=== PATIENT | male | born 1950 | race Caucasian/White ===

== ENCOUNTER 2019-09-24 08:49 | Outpatient (CLI) | payer OTHER, SELFPAY ==
[2019-09-24 11:16] LABS: Abs Immature Grans 0.04 k/cumm (0.0-0.09); Absolute Basophil Count 0.04 k/cumm (0.0-0.2); Absolute Eosinophil Count 0.78 k/cumm (0.0-0.7); Absolute Lymphocyte Count 1.34 k/cumm (1.2-3.4); Absolute Monocyte Count 0.61 k/cumm (0.11-0.7); Absolute Neutrophil Count 4.16 k/cumm (1.2-6.7); Basophils % 0.6; Eosinophils % 11.2; HCT 49.6 % (40.0-50.0); HGB 15.9 g/dL (13.5-17.5); Immature Grans % 0.6; Lymphocytes % 19.2; Mean Corp. HGB Concentration 32.1 g/dL (32.0-36.0); Mean Corpuscular Hemoglobin 29.4 pg (27.0-33.0); Mean Corpuscular Volume 91.7 fL (80-95); Monocytes % 8.8; Neutrophils % 59.6; Platelet Count 262 x1000/uL (130-400); RBC 5.41 m/cumm (4.50-6.00); RBC Distribution Width 13.8 % (11.8-14.1); White Blood Cell Count 6.97 k/cumm (4.4-10.8)
[2019-09-24 11:25] LABS: Hemoglobin A1C 6.2 % (4.5-6.2)
[2019-09-24 11:47] LABS: ALT 41 U/L (16-63); AST 17 U/L (15-37); Alkaline Phosphatase 68 U/L (46-116); BUN 15 mg/dL (7-18); Bilirubin, Total 0.6 mg/dL (0.2-1.0); CREATININE 0.97 mg/dL (0.70-1.30); Calculated LDL 115 mg/dL; Chloride 108 mmol/L (98-107); Cholesterol 170 mg/dL (<200); Glucose 120 mg/dL (74-106); HDL Cholesterol 36 mg/dL (40-60); Potassium 4.3 mmol/L (3.5-5.1); Sodium 145 mmol/L (136-145); TSH 2.66 uIU/mL (0.36-3.74); Total Protein 6.9 g/dL (6.4-8.2); Triglyceride 96 mg/dL (<150)
[2019-09-29 10:49] LABS: PSA, Screening 1.4 ng/mL (0.0-6.5)
== END 2019-09-24 09:09 ==
PROVIDERS: PCP Family Medicine; Visit Provider Family Medicine
DX: F41.9 Anxiety disorder, unspecified (principal); R73.9 Hyperglycemia, unspecified; N13.8 Other obstructive and reflux uropathy; N40.1 Benign prostatic hyperplasia with lower urinary tract symptoms; R05 Cough; R50.9 Fever, unspecified; Z12.5 Encounter for screening for malignant neoplasm of prostate; I10 Essential (primary) hypertension
CPT/HCPCS: 36415; 80053; 80061; 84153; 83036; 84443; 85025

== ENCOUNTER 2019-10-08 13:19 | Outpatient (CLI) | payer OTHER, SELFPAY ==
--- NOTE | 2019-10-08 13:36 | DI.RAD_ITS ---
EXAM: XR CHEST 2V PA LATERAL INDICATION: Intermittent fever, myalgias, malaise,cough x 10w, R05, R50.9. COMPARISON: No exams were available for comparison TECHNIQUE: 2D digital imaging was performed. FINDINGS: Heart size and pulmonary vasculature within normal limits. The lungs are clear. No effusions or pne umothoraces are identified. There is a rounded soft tissue density seen in the inferior mediastinum near the gastroesophageal junction. This may represent a hiatal hernia. Barium swallow or upper end oscopy may be considered for further evaluation. CT scan may also be performed to exclude other etio logies. Bones appear intact. IMPRESSION: 1. No acute pulmonary process. 2. Soft tissue density in the lower mediastinum which may represent a hiatal hernia. Follow-up as cl inically appropriate.
== END 2019-10-08 13:39 ==
PROVIDERS: PCP Family Medicine; Visit Provider Family Medicine
DX: R05 Cough (principal); R50.9 Fever, unspecified; J98.59 Other diseases of mediastinum, not elsewhere classified
CPT/HCPCS: 71046

== ENCOUNTER → 2020-09-01 10:26 | Outpatient (BNVA) | payer OTHER, SELFPAY | PROVIDERS: PCP Family Medicine; Referring Provider Family Medicine; Visit Provider Surgery | DX: C44.619 Basal cell carcinoma of skin of left upper limb, including shoulder (principal); R22.2 Localized swelling, mass and lump, trunk | CPT/HCPCS: 11602; 99202 ==

== ENCOUNTER 2020-09-01 12:58 | Outpatient (REF) | payer OTHER, SELFPAY ==
--- NOTE | 2020-09-01 11:00 | SKI_PTH ---
PATIENT: Jamie Conteh LOC: [facility] U#:[id number] AGE/SX: 69/M ROOM: RE09/01/[address]: Kait Yee : 1950 BED: DIS: 09/01/2020 SPEC #: [id number] RECD: 09/01/20 13:02 STATUS: CASI REJimmy #: [id number] KENY: 09/01/20 11:[address]: Kait Yee DEPT: Surgical Specimen RECD BY: Katelyn Moctezuma ENTERED: 09/01/20 13:03 SP TYPE: ED CARTER DR: Michael Torres MD Tissues: 1 - SKIN BIOPSY(SHAVE/PUNCH) Procedures: SKIN LEVEL 4 Comments: [id number] [place] [place]
== END 2020-09-01 13:18 ==
LOC: LBN 12:58
PROVIDERS: PCP Family Medicine; Visit Provider Surgery
DX: C44.619 Basal cell carcinoma of skin of left upper limb, including shoulder (principal)
CPT/HCPCS: 88305

== ENCOUNTER → 2020-09-10 10:30 | Outpatient (BNVA) | payer OTHER, SELFPAY | PROVIDERS: PCP Family Medicine; Referring Provider Family Medicine; Visit Provider Surgery | DX: C44.91 Basal cell carcinoma of skin, unspecified (principal) | CPT/HCPCS: 99212 ==

== ENCOUNTER → 2020-09-17 11:27 | Outpatient (BNVA) | payer OTHER, SELFPAY | PROVIDERS: PCP Family Medicine; Referring Provider Family Medicine; Visit Provider Surgery | DX: Z48.817 Encounter for surgical aftercare following surgery on the skin and subcutaneous tissue (principal); C44.91 Basal cell carcinoma of skin, unspecified | CPT/HCPCS: 99211 ==

== ENCOUNTER 2023-01-11 02:56 | Outpatient (CLI) | payer MEDICARE, SELFPAY ==
[2023-01-11] MEDS: Inhaler, Assist Device 1 EACH MC (14:09)
[2023-01-11] MEDS: Albuterol HFA 18 GM 200 PUFF INH IH (14:09)
--- NOTE | 2023-01-17 13:17 | W.PFT ---
Date of service: 01/11/23 Time of Service: 13:03 Pulmonary Function Test Result Requesting Provider Ifrah Scott Indications: Dyspnea Interpretation Spirometry: There is no airflow limitation. No bronchodilator response. Lung Volumes: Normal volumes. Diffusion Capacity: Normal diffusion Airway Pressure: Normal airways resistance Impression Normal pulmonary function testing Clinical Correlation therefore is recommended.
== END 2023-01-11 02:57 | disposition home or self-care (01) ==
LOC: RT 02:56
PROVIDERS: PCP Family Medicine; Visit Provider Family Medicine
DX: R06.09 Other forms of dyspnea (principal); Z91.89 Other specified personal risk factors, not elsewhere classified; Z86.16 Personal history of COVID-19
CPT/HCPCS: 94060; 94726; 94729

== ENCOUNTER 2023-01-17 11:48 | Outpatient (CLI) | payer MEDICARE, SELFPAY ==
[2023-01-17 15:53] LABS: ALT 39 U/L (16-63); AST 18 U/L (15-37); Albumin 4.1 g/dL (3.4-5.0); Alkaline Phosphatase 67 U/L (46-116); Anion Gap 8.8 mmol/L (3-11); BUN 18 mg/dL (7-18); Bilirubin, Total 0.5 mg/dL (0.2-1.0); CO2 27.2 mmol/L (21.0-32.0); CREATININE 1.2 mg/dL (0.70-1.30); Calcium 9.6 mg/dL (8.5-10.1); Calculated LDL 98 mg/dL (<100); Chloride 106 mmol/L (98-107); Cholesterol 181 mg/dL (<200); Estimated GFR 63.85 (mL/min/1.73m2); Glucose 164 mg/dL (74-106); HDL Cholesterol 38 mg/dL (40-60); Potassium 3.9 mmol/L (3.5-5.1); Sodium 142 mmol/L (136-145); Total Protein 7.6 g/dL (6.4-8.2); Triglyceride 229 mg/dL (<150)
[2023-01-17 16:04] LABS: Uric Acid 5.3 mg/dL (3.5-7.2)
== END 2023-01-17 11:49 | disposition home or self-care (01) ==
LOC: LBO 11:48
PROVIDERS: PCP Family Medicine; Visit Provider Family Medicine
DX: R06.09 Other forms of dyspnea (principal); E78.5 Hyperlipidemia, unspecified; Z86.16 Personal history of COVID-19; R10.9 Unspecified abdominal pain; N40.1 Benign prostatic hyperplasia with lower urinary tract symptoms; N13.8 Other obstructive and reflux uropathy; N20.0 Calculus of kidney; Z12.5 Encounter for screening for malignant neoplasm of prostate; N52.9 Male erectile dysfunction, unspecified
CPT/HCPCS: 36415; 80053; 80061; 84153; 84550

== ENCOUNTER 2023-02-28 01:38 | Outpatient (CLI) | payer MEDICARE, SELFPAY ==
--- NOTE | 2023-02-28 14:05 | DI.US_ITS ---
APPROVED REPORT EXAM: Comprehensive 2D, Doppler, and color-flow Echocardiogram Patient Location: Out-Patient Parking Manager: Yaakov Portillo RDMS, RVT Indications: Dyspnea on exertion, H/O Covied, Risk for CAD Other Information Study Quality: Adequate. Technically limited study due to body habitus. Conclusion Mild concentric left ventricular hypertrophy. EF is 60%. Wall motion is normal Grossly normal right ventricular size and systolic function Both atria are normal in size Aortic valve is trileaflet with mild to moderate regurgitation Mild mitral and tricuspid regurgitation Right ventricular systolic pressure could not be estimated Dilated ascending aorta measuring 4.43 cm Wall motion Left Ventricle The left ventricle is normal size. The left ventricular systolic function is normal. The left ventric ular ejection fraction is within the normal range. Mild concentric left ventricular hypertrophy. Ther e is normal LV segmental wall motion. There is no ventricular septal defect visualized. LVEF is 6%. Right Ventricle Right ventricle is grossly normal in size. Right ventricular systolic function is grossly normal. Atria The left atrium size is normal. The right atrium size is normal. The interatrial septum is intact wit h no evidence for an atrial septal defect. Aortic Valve Aortic valve is trileaflet. The aortic valve is normal in structure. There is no aortic valvular sten osis. Mild to moderate aortic regurgitation. Mitral Valve The mitral valve is normal in structure. No evidence of mitral valve stenosis. Mild mitral regurgit ation. Tricuspid Valve The tricuspid valve is normal in structure. There is no tricuspid valve stenosis. Mild tricuspid regu rgitation. Pulmonic Valve The pulmonary valve is normal in structure. There is no pulmonic valvular stenosis. Trace pulmonic re gurgitation. Great Vessels Aortic root is mildly dilated. The ascending aorta is moderately dilated. Aortic arch is normal in ca liber. IVC is normal in size and collapses >50% with inspiration. Pericardium There is no pericardial effusion. 2D Dimensions IVSD d PLAX 1.23 cm M: 0.6-1.2 LV Vol A2C d MOD 193.3 mL LVPW d PLAX 1.26 cm M: 0.6 - 1.2 LV Vol A4C d MOD 165.9 mL LVID d PLAX 5.23 cm M: 4.2 - 5.8 LA vol/ BSA A2C s A-L 26.9 mL/m2 LVDs 3.85 cm M: 2.5 - 4.0 LA vol/ BSA A4C s A-L 20.5 mL/m2 Ao Root d 3.93 cm M: 3.1 - 3.7 LA Vol/ BSA Biplane s A-L 24.7 mL/m2 Ao Asc Diam d 4.43 cm M: 2.6 - 3.4 LA Area A4C s MOD 17.42 cm2 LV EF Teichholz 49.9 % LA Area A2C s MOD 18.98 cm2 LVEF (Han's) 54.14 % M: 52 - 72 LV EF A4C MOD 57.4 % LV Volume 130.62 mL M: 62 - 150 LV EF A2C MOD 55.3 % LV Volume Index 56.06 mL/m2 M: 34 - 74 LV EF Biplane MOD 54.1 % LV Vol Biplane MOD 182.7 mL SV 98.92 mL FS 25.45 % SV Index 42.52 mL/m2 LV Diastology MV E' medial 0.082 (>0.07 m/s) E/A Ratio 0.8 LV E/e MED 7.40 (<14) MV E Vmax 0.61 (0.4-1.3 m/s) MV E' lateral 0.081 (>0.1 m/s) MV A Vmax 0.80 (0.4-1.3 m/s) LV E/e LAT 7.50 (<14) MV E/A Ratio 0.75 MV E/E' medial 7.40 MV E/E' lateral 7.52 Aortic Valve LVOT Area 4.01 cm2 AoV Area Vmax 3.29 cm2 LVOT Vmax 1.36 m/s AoV Area/ BSA (Vmax) 1.42 cm2/m2 LVOT Mean Brendon. 0.87 m/s ADAN Mean Brendon. 3.09 cm2 LVOT Peak Grad 7.4 mmHg ADAN Mean Brendon. Index 1.33 cm2/m2 LVOT Mean Grad 3.6 mmHg LVOT VTI 0.229 m LVOT Diam s 2.25 cm AoV Vmax 1.66 m/s Velocity Ratio 0.82 AoV Mean Brendon. 1.13 m/s AoV Peak Grad 11.1 mmHg LVOT SV 91.97 mL AoV Mean Grad 5.8 mmHg AoV VTI 0.277 m AoV Area VTI 3.32 cm2 AoV Area/ BSA (VTI) 1.43 cm/m2 Mitral Valve MV DT 303 (160-240 msec) MV PHT 88 msec MV Area PHT 2.51 cm2 MV VTI 0.361 m MV Area VTI 2.55 (4.0-6.0 cm2) Pulmonary Valve PV Vmax 1.01 (0.5-1.5 m/s) RVOT Peak Gr. 3.01 mmHg PV Peak Grad 4.1 mmHg RVOT Mean Gr. 1.35 mmHg PV Mean Grad 2.8 mmHg RVOT VTI 0.148 m PV VTI 0.175 m RVOT Vmax 0.87 m/s
== END 2023-02-28 01:58 ==
LOC: DI 01:38
PROVIDERS: PCP Family Medicine; Visit Provider Family Medicine
DX: R06.09 Other forms of dyspnea (principal); Z86.16 Personal history of COVID-19; Z91.89 Other specified personal risk factors, not elsewhere classified
CPT/HCPCS: 93306

== ENCOUNTER 2023-10-29 17:27 | Outpatient (REF) | payer MEDICARE, SELFPAY ==
[2023-10-29 17:53] LABS: Bilirubin Negative (Negative); Blood Large (Negative); Clarity Cloudy (Clear); Glucose Negative (Negative); Ketones Negative (Negative); Leukocyte Esterase Negative (Negative); Nitrite Negative (Negative); Specific Gravity >= 1.030 (1.005-1.025); Urobilinogen 0.2 mg/dL (Up to 0.2); pH 5.5 (5-8)
[2023-10-29 18:01] LABS: Bacteria Few HPF (Negative); C & S Indicated? C&S Done As Ordered; Casts Negative LPF (Negative); Crystals Mod Calcium Oxalate HPF (Negative); Epithelial Cells Few HPF (Negative); Mucus Trace (Negative); RBC >50 HPF (0-2)
== END 2023-10-29 17:28 | disposition home or self-care (01) ==
LOC: LBN 17:27
PROVIDERS: PCP Family Medicine; Visit Provider Nurse Practitioner Family
DX: N30.01 Acute cystitis with hematuria (principal)
CPT/HCPCS: 81003; 81015; 87086

== ENCOUNTER → 2023-11-05 02:29 | Outpatient (CLI) | payer MEDICARE, SELFPAY ==
--- NOTE | 2023-11-05 07:34 | DI.US_ITS ---
Exam(s) US RENAL EXAM: US RENAL CLINICAL HISTORY: LLQ pain,r10.32,HEMATURIA,H/O STONES,UTI,? STONE OR PROSTATE. TECHNIQUE: Chiu scale, color and spectral Doppler were used. COMPARISON: No exams were available for comparison FINDINGS: Renal size in cm: Right: 12.1. Left: 11.7. Echogenicity: Normal. Hydronephrosis: No. Cyst or mass: There appears to be an isoechoic exophytic mass arising from the inferior aspect of the left kidney measuring 2 x 1.4 x 3.5 cm. There is prominence of the cortex in the midpole of the rig ht kidney which may represent normal renal tissue. The possibility of an isoechoic renal mass cannot be excluded. Nephrolithiasis: No. Other findings: None. Bladder:The urinary bladder is incompletely distended limiting evaluation. There is a question of an echogenic shadowing focus near the orifice of the right ureter. Ureteral jets: Right: Not visualized on this examination. Left: Visualized and unremarkable. Prevoid vol:69 cc Postvoid vol:The patient was unable to void. Cc Prostate: 6 cc Renal color flow: Symmetric and within normal limits. IMPRESSION: 1. Question of a 2 cm left renal mass. 2. Normal breast tissue versus right renal mass. 3. Nonvisualization of the right ureteral jet. Possible obstructing focus in the region of the right ureter in the urinary bladder. 4. A CT scan of the abdomen and pelvis using the CT urography protocol is recommended for further jame luation. Unexpected findings DATA REPOSITORY:
== END ==
PROVIDERS: PCP Family Medicine; Visit Provider Family Medicine
DX: N28.89 Other specified disorders of kidney and ureter (principal); R31.9 Hematuria, unspecified
CPT/HCPCS: 76770

== ENCOUNTER → 2023-11-27 01:11 | Outpatient (CLI) | payer MEDICARE, SELFPAY ==
[2023-11-27 12:47] LABS: CREATININE 1.2 mg/dL (0.70-1.30); Estimated GFR 63.46 (mL/min/1.73m2)
[2023-11-27] MEDS: Normal Saline - Diluent 50 ML VIAL IJ (13:18)
[2023-11-27] MEDS: Omnipaque 350 MG/ML 100 ML BTL IJ (13:19)
--- NOTE | 2023-11-27 13:23 | DI.CT_ITS ---
Exam(s) CT ABDOMEN PELVIS WO/W EXAM: CT ABDOMEN PELVIS WO/W CLINICAL HISTORY: assess left renal mass, ? rt renal mass,URETER,PYELONEPHRITIS,N12,? uj OBST. TECHNIQUE: Imaging Protocol: Axial computed tomography images with coronal and sagittal reformatted images were created and reviewed. CT urogram protocol CONTRAST MATERIAL: Intravenous: Omnipaque-350 100cc Oral: None COMPARISON: US US RENAL from 11/05/2023 FINDINGS: VISUALIZED LUNG BASES: No nodules nor pleural effusions evident. ABDOMEN: There is no ascites. LIVER: There are 2 small benign cyst in the right hepatic lobe. One measures 7 mm and the larger galileo sures 10 mm. No dilated intrahepatic ducts. GALLBLADDER/BILIARY: No obvious gallbladder pathology. CBD is not dilated. PANCREAS: No evidence of pancreatic mass nor dilatation of the pancreatic duct. SPLEEN: Spleen is not enlarged. No obvious intrasplenic lesions. Splenic and portal veins are paten t. ADRENALS: There are no significant adrenal masses. KIDNEYS: There are no solid lesions seen in either kidney there is a single cyst in each kidney. In the posterior cortex of the right kidney there is a 2.4 x 2.0 cm benign cyst and in the posterior cor demar of the opposite-left kidney there is a partially exophytic 3 by 2.2 cm benign cyst. A smaller 1 cm cyst is noted in the anterior cortex of the left kidney. There are no hemorrhagic cysts nor isode nse solid masses in either kidney.. There are no consistent filling defects in the nondilated renal pelves. Solitary ureter on each side is noted. \ ABDOMINAL AORTA: No evidence of significant abdominal aortic aneurysm. No significant iliac artery a neurysms. LYMPH NODES:There is no retroperitoneal nor paraaortic adenopathy. ABDOMINAL WALL: Fat containing bilateral inguinal hernias. GI: There is no evidence of bowel obstruction, free air, nor abscess. PELVIS: GI: No evidence of appendicitis.There is sigmoid diverticulosis without evidence of obvious acute div erticulitis. LYMPH NODES: There is no intrapelvic nor inguinal adenopathy. REPRODUCTIVE: Prostate mildly enlarged. Also calcified. URINARY BLADDER: There is a calculus on the dependent wall of the urinary bladder which measures 8 x 6 mm. No other findings in the bladder. No diverticuli. No obvious bladder masses. OSSEOUS: No fractures and no significant osseous lesions. IMPRESSION: 1. There are benign cysts in both kidneys as described above. These do not require further workup. There are no solid masses in either kidney. There are no calculi in either kidney nor hydronephrosis nor hydroureter. 2. There is a solitary calculus in the urinary bladder measuring 8 x 6 mm. No other obvious bladder findings. Prostate gland is moderately enlarged and calcified. 3. Two small benign cysts in the liver. RADIATION DOSE DELIVERED: 4,324.2mGy.cm Total DLP DATA REPOSITORY: All CT scans at this facility are submitted to the National Radiology Data Registry (NRDR) Dose Index Registry (DIR) with the [employer] (ACR). RADIATION OPTIMIZATION: All CT scans at this facility use at least one of these dose optimization te chniques: automated exposure control; mA and/or kV adjustment per patient size (includes targeted exa ms where dose is matched to clinical indication); or iterative reconstruction.
== END ==
PROVIDERS: PCP Family Medicine; Visit Provider Family Medicine
DX: N12 Tubulo-interstitial nephritis, not specified as acute or chronic (principal)
CPT/HCPCS: 74178; 82565; J3490

== ENCOUNTER → 2024-01-28 10:31 | Outpatient (CLI) | payer MEDICARE, SELFPAY ==
--- NOTE | 2024-01-28 10:00 | DI.RAD_ITS ---
Exam(s) XR HIP RT COMPLETE AP PELVIS EXAM: XR HIP RT COMPLETE AP PELVIS CLINICAL HISTORY: Rt hip pain, M25.559, G89.29. TECHNIQUE: 2D digital imaging was performed of the right hip. Three images were obtained. AP pelvis and lateral and AP right hip views were obtained. COMPARISON: No exams were available for comparison FINDINGS: BONES: No acute fracture is present. No bony destructive lesion is seen. JOINTS: No dislocation present. There is a prominent osteophyte arising from the right acetabulum. T here are 2 tiny well corticated osseous densities adjacent to the right acetabulum which appear chron ic. There is moderate narrowing of the superior joint space of the right hip. The left hip is well maintained. The sacroiliac joints and symphysis pubis are unremarkable. SOFT TISSUE: Normal. 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 DATA REPOSITORY: RADIATION DOSE DELIVERED:
== END ==
PROVIDERS: PCP Family Medicine; Visit Provider Nurse Practitioner Family
DX: M25.551 Pain in right hip (principal); M16.11 Unilateral primary osteoarthritis, right hip; G89.29 Other chronic pain
CPT/HCPCS: 73502

== ENCOUNTER 2025-04-27 01:12 | Outpatient (CLI) | payer MEDICARE, SELFPAY ==
--- NOTE | 2025-04-27 13:51 | DI.RAD_ITS ---
Exam(s) XR KNEE LT 3V AP,LAT,ALE EXAM: XR KNEE LT 3V AP,LAT,ALE CLINICAL HISTORY: knee pain, left,m25.562. TECHNIQUE: 2D digital imaging was performed. Three views. COMPARISON: CR KNEES BILAT AP STANDING LATS from 03/02/2016 CR RIGHT SHOULDER COMPLETE from 04/09/2017 CR XR CHEST 2V PA LATERAL from 10/08/2019 CR XR HIP RT COMPLETE AP PELVIS from 01/28/2024 FINDINGS: BONES: No acute fracture is present. No bony destructive lesion is seen. Chronic appearing deformities of the distal femur and proximal tibia and fibula. Patient appears to have multiple sessile osteochondromas. JOINTS: A total knee prosthesis is present. No evidence of loosening. The knee is normally aligned. A large joint effusion is seen. SOFT TISSUE: Normal. IMPRESSION: Unremarkable knee prosthesis. Large joint effusion. Multiple sessile osteochondromas. DATA REPOSITORY: RADIATION DOSE DELIVERED:
== END 2025-04-27 01:32 ==
LOC: DI 01:12
PROVIDERS: PCP Family Medicine; Visit Provider Physician Assistant
DX: M25.562 Pain in left knee (principal)
CPT/HCPCS: 73562

== ENCOUNTER 2025-10-14 00:52 | Outpatient (CLI) | payer MEDICARE, SELFPAY ==
[2025-10-14 13:46] LABS: Abs Immature Grans 0.02 10^3/uL (0.0-0.06); HCT 48.5 % (40.0-50.0); HGB 16.1 g/dL (13.5-17.5); Immature Grans % 0.2 %; MCH 29.2 pg (27.0-33.0); MCHC 33.2 % (32.0-36.0); MCV 88 fL (80-95); MPV 9.4 fL (8.0-11.0); Platelet Count 192 10^3/uL (130-400); RBC 5.52 10^6/uL (4.36-5.78); RDW 13.0 % (11.8-14.1); RDW-SD 41.6 fL; WBC 8.10 10^3/uL (4.4-10.8)
[2025-10-14 15:37] LABS: Cholesterol 205 mg/dL (<200); HDL Cholesterol 41 mg/dL (>or=40); Potassium 3.8 mmol/L (3.5-5.1)
[2025-10-14 17:07] LABS: ALT 30 U/L (10-49); AST 21 U/L (<34); Albumin 4.3 g/dL (3.2-5.0); Alkaline Phosphatase 70 U/L (46-116); Anion Gap 13.3 mmol/L (3-11); BUN 18 mg/dL (9-23); Bilirubin, Total 1.0 mg/dL (0.2-1.2); CO2 21.7 mmol/L (20.0-31.0); Calcium 10.0 mg/dL (8.3-10.6); Chloride 110 mmol/L (98-107); Glucose 176 mg/dL (74-106); Potassium 3.9 mmol/L (3.5-5.1); Sodium 145 mmol/L (136-145); Total Protein 6.8 g/dL (5.7-8.2)
[2025-10-14 17:14] LABS: Hemoglobin A1C 7.2 % (<5.7)
== END 2025-10-14 00:53 | disposition home or self-care (01) ==
LOC: LBO 00:52
PROVIDERS: PCP Family Medicine; Visit Provider Student in an Organized Health Care Education/Training Program
DX: R73.9 Hyperglycemia, unspecified (principal); I10 Essential (primary) hypertension; E78.5 Hyperlipidemia, unspecified; Z13.220 Encounter for screening for lipoid disorders; Z79.899 Other long term (current) drug therapy
CPT/HCPCS: 80053; 80061; 82565; 83036; 84132; 85025